=== PATIENT | male | born 1940 | race Caucasian/White ===

== ENCOUNTER → 2017-03-03 | Outpatient (CLI) | payer OTHER ==
[2017-03-03 18:27] LABS: Blood Urea Nitrogen 14 mg/dL (9-20); Non-African American GFR(MDRD) 57 (>60 ml/min/1.73 sqM)
--- NOTE | 2017-03-04 08:01 | CT ---
CT urogram with and without contrast HISTORY: Hematuria Helical acquisition obtained pre- and post administration of intravenous contrast to the kidneys, pos t administration helical imaging obtained through the abdomen and pelvis following dynamic administra tion of 80 cc Visipaque 320 IV Three-dimensional reconstructions performed on an alternate workstation There is an infrarenal abdominal aortic aneurysm measuring 4.9 cm with luminal plaque suspected. No a pparent involvement of the common iliac arteries. Indicative aneurysm is approximately 5-6cm. Renal arteries are patent. Cystic foci are associated with the right kidney at the midpole level exte nding from the medullary aspect into an exophytic location, there may be a thin septation present, th e cyst measures 4.9 cm in greatest dimension by 3.8 cm x 3.3 cm. No hydronephrosis bilaterally. There is no evident ureteral calculus. Some small parapelvic cysts are present. The urinary bladder shows an inferior impression due to an enlarged prostate which shows associated c alcifications. The distal right ureter shows a slight dilation, questionable soft tissue is noted see n best on the sagittal exam image 71. Cystic foci are present within the liver show nonaggressive appearance, the largest is in the left lo be measures 3.8 cm. Some probable atelectasis or scarring present at the lung bases. No pleural or pe ricardial effusion evident. There are coronary artery calcifications. There is no bowel obstruction. Adrenal glands are unremarkable. Gallbladder is normal. Spleen within normal limits, pancreas is norm al. No retroperitoneal adenopathy. Superior mesenteric artery, celiac axis, inferior mesenteric arter y are patent. Degenerative disc changes are present in the visualized spine. Diverticular changes ass ociated with the colon. IMPRESSION: Difficult to exclude abnormal soft tissue distal right ureter, consider retrograde ureter ography. Prostatic enlargement. Infrarenal abdominal aortic aneurysm. Diverticulosis and additional f indings above.
== END | disposition home or self-care (01) ==
LOC: RADCTMAIN 17:50
PROVIDERS: ATTEND Urology
DX: N40.0 Benign prostatic hyperplasia without lower urinary tract symptoms (principal); K57.30 Diverticulosis of large intestine without perforation or abscess without bleeding; I71.4 Abdominal aortic aneurysm, without rupture
CPT/HCPCS: 82565; 84520; 74178; 36415; 74400; Q9967

== ENCOUNTER → 2017-06-22 | Outpatient (CLI) | payer MEDICARE, OTHER ==
[2017-06-22 10:58] LABS: Anisocytosis Slight; Basophils # (A) 0.1 k/uL (0-0.2); Basophils % (A) 1 %; CH 27.7; CHCM 32.7; Eosinophils # (A) 0.2 k/uL (0-0.7); Eosinophils % (A) 2 %; HDW 2.73; HGB 15.6 gm/dL (13.0-17.5); Luc # (Auto) 0.42; Luc % (Auto) 4; Lymphocytes # (A) 3.2 k/uL (1.0-4.8); Lymphocytes % (A) 33 %; MCH 26.7 pg (25.0-35.0); MCHC 31.2 g/dL (31.0-37.0); MCV 85.4 fL (80.0-100.0); Mean Platelet Volume 6.6; Monocytes # (A) 0.5 k/uL (0-1.0); Monocytes % (A) 5 %; Neutrophils # (A) 5.5 k/uL (1.3-7.7); Neutrophils % (A) 55 %; RBC 5.85 m/uL (4.30-5.90); RDW 16.5 % (11.5-15.5); WBC (Perox) 10.23
== END | disposition home or self-care (01) ==
LOC: LABWHC1 10:31
PROVIDERS: ATTEND Family Medicine
DX: A41.9 Sepsis, unspecified organism (principal); N39.0 Urinary tract infection, site not specified
CPT/HCPCS: 36415; 83605; 85025

== ENCOUNTER → 2017-07-20 | Outpatient (CLI) | payer MEDICARE ==
[2017-07-20 10:57] LABS: Blood Urea Nitrogen 9 mg/dL (9-20); Non-African American GFR(MDRD) >60 (>60 ml/min/1.73 sqM)
--- NOTE | 2017-07-20 14:07 | CT ---
EXAMINATION TYPE: CT angio abdomen DATE OF EXAM: 07/20/2017 COMPARISON: CT urogram 03/03/2017 HISTORY: AAA CT DLP: 1055.60 mGycm, Automated Exposure Control for Dose Reduction was Utilized. CONTRAST: CT scan of the abdomen and pelvis is performed with oral and with IV Contrast, patient injected with 100 mL of Omnipaque 350. FINDINGS: LUNG BASES: There is some scattered infiltrates greater at the left base most likely on the basis of atelectasis. Coronary artery calcification is noted. LIVER/GB: Multiple Cysts are within the liver. PANCREAS: No significant abnormality is seen. SPLEEN: No significant abnormality is seen. ADRENALS: No significant abnormality is seen. KIDNEYS: There is a 2.9 cm transverse dimension cyst on the mid right kidney. BOWEL: No significant abnormality is seen. The appendix is normal. Note is made of diverticulosis w ithout acute diverticulitis. PROSTATE/SEMINAL VESICLES: Prostate is prominent contains some calcification. This has an inferior im pression on the urinary bladder. LYMPH NODES: No greater than 1cm abdominal or pelvic lymph nodes are appreciated. OSSEOUS STRUCTURES: No significant abnormality is seen. Abdominal aorta: There is an infrarenal abdominal aortic aneurysm. This terminates the bifurcation. A ortic calcification is present. Common iliac artery calcification is also noted. The abdominal aorta at the aneurysm measures 5.0 x 5.1 cm. 3-D [id number] aortic reconstructed images are performed separately on the [employer] computer by the technologist and presented. OTHER: No significant additional abnormality is seen. IMPRESSION: 1. Infrarenal abdominal aortic aneurysm terminating at the bifurcation with an AP dimension of 5.0 cm in transverse dimension of 5.1 cm.
== END | disposition home or self-care (01) ==
LOC: RADCTMAIN 10:00
PROVIDERS: ATTEND Thoracic Surgery (Cardiothoracic Vascular Surgery)
DX: I71.4 Abdominal aortic aneurysm, without rupture (principal)
CPT/HCPCS: 82565; 84520; 74175; 36415; Q9967